=== PATIENT | male | born 1955 | race Two or more races ===

== ENCOUNTER 2019-01-24 16:19 | Emergency (ER) | payer BC, OTHER ==
[~2019-01-24] VITALS: Ht 177.8 cm; Wt 86.2 kg
[2019-01-24 17:36] LABS: BASOPHILS # (AUTO) 0.1 /CMM (0.0-0.2); BASOPHILS % (AUTO) 0.6 % (0.0-2.0); EOSINOPHILS % (AUTO) 1.1 % (0.0-6.0); HEMATOCRIT 43 % (39-51); HEMOGLOBIN 14.5 g/dL (13.5-17.5); LYMPHOCYTES # (AUTO) 4.3 /CMM (0.8-4.8); LYMPHOCYTES % (AUTO) 37.6 % (20.0-44.0); MEAN CORPUSCULAR HGB CONC 33 g/dl (31.0-36.0); MEAN CORPUSCULAR VOLUME 98 fL (80-96); MONOCYTES # (AUTO) 0.8 /CMM (0.1-1.30); MONOCYTES % (AUTO) 7.3 % (2.0-12.0); NEUTROPHILS # (AUTO) 6.1 /CMM (1.8-8.9); NEUTROPHILS % (AUTO) 53.4 % (43.0-81.0); PLATELET COUNT (AUTO) 192 /CMM (150-450); RED BLOOD CELL COUNT(AUTO) 4.41 MIL/uL (4.5-6.0); WHITE BLOOD COUNT (AUTO) 11.4 K/uL (4.3-11.0)
--- NOTE | 2019-01-24 17:37 | NUR ---
PATIENT AWAKE ALERT SR ON MONITOR NOTED ANXIOUS MD @ BEDSIDE WITH ORDERS ABLE OBTAINED BLOOD AND SEND TO LAB
[2019-01-24 17:43] LABS: CALCIUM, SERUM 9.3 mg/dL (8.5-10.1); CARBON DIOXIDE 28 mmol/L (21-32); CHLORIDE 100 mmol/L (98-107); GLUCOSE 111 mg/dL (74-106); POTASSIUM 4.1 mmol/L (3.5-5.1); SODIUM SERUM 133 mmol/L (136-145); UREA NITROGEN, BLOOD 17 mg/dL (7-18)
[2019-01-24 17:49] LABS: ALANINE AMINOTRANSFERASE 26 U/L (12-78); ALKALINE PHOSPHATASE 62 U/L (46-116); ASPARTATE AMINOTRANSFERASE 25 U/L (15-37); BILIRUBIN,DIRECT 0.1 mg/dL (0.0-0.2); BILIRUBIN,TOTAL 0.4 mg/dL (0.2-1.0)
[2019-01-24 18:07] LABS: MAGNESIUM 2.2 mg/dL (1.8-2.4); PHOSPHORUS 2.5 mg/dL (2.5-4.9)
[2019-01-24] MEDS ORDERED: ALPRAZOLAM 0.5 MG TABLET PO ONE (19:30)
--- NOTE | 2019-01-24 19:40 | NUR ---
IV removed. Catheter intact and site benign. Pressure and 4x4 applied to site. No bleeding noted. ambulatory with a steady gait noted. Patient discharged to home in stable condition. Written and verbal after care instructions given. Patient verbalizes understanding of instruction. Pt aaox4 no acute distress noted, resp even and unlabored.
[2019-01-24 19:41] VITALS: BP 146/64
== END 2019-01-24 19:42 | disposition home or self-care (01) ==
LOC: ER 16:22
DX: S80.12XA Contusion of left lower leg, initial encounter (principal); R00.2 Palpitations; F41.9 Anxiety disorder, unspecified; F43.9 Reaction to severe stress, unspecified; R55 Syncope and collapse; I70.0 Atherosclerosis of aorta; I10 Essential (primary) hypertension; I49.9 Cardiac arrhythmia, unspecified; Z98.890 Other specified postprocedural states; X58.XXXA Exposure to other specified factors, initial encounter; Y93.89 Activity, other specified; Y92.89 Other specified places as the place of occurrence of the external cause; Y99.8 Other external cause status
CPT/HCPCS: 36415; 71045-TC; 73590-TC; 80048-TC; 80076-TC; 82550-TC; 83735-TC; 84100-TC; 84484-TC; 85025-TC; 85378-TC; 85730-TC; 93971-TC

== ENCOUNTER 2019-06-08 03:57 | Emergency (ER) | payer BC, MEDICARE ==
[~2019-06-08] VITALS: Ht 175.3 cm; Wt 83.9 kg
--- NOTE | 2019-06-08 04:17 | NUR ---
PT CAME TO ER BED 1 FROM HOME BIB RA C/O HIGH BLOOD PRESSURE OF 216/108. PT STATES THAT HE HAS A HX OF HTN. AAOX4. NO SOB. BREATHING EVENLY AND UNLABORED. CONNECTED TO MONITOR.
--- NOTE | 2019-06-08 05:30 | NUR ---
BLOOD DRAWN AND SENT TO LAB.
[2019-06-08 05:46] LABS: BASOPHILS % (AUTO) 0.4 % (0.0-2.0); EOSINOPHILS % (AUTO) 0.5 % (0.0-6.0); HEMATOCRIT 46 % (39-51); HEMOGLOBIN 15.4 g/dL (13.5-17.5); LYMPHOCYTES # (AUTO) 1.8 /CMM (0.8-4.8); LYMPHOCYTES % (AUTO) 25.6 % (20.0-44.0); MEAN CORPUSCULAR HGB CONC 34 g/dl (31.0-36.0); MEAN CORPUSCULAR VOLUME 96 fL (80-96); MONOCYTES # (AUTO) 0.5 /CMM (0.1-1.30); MONOCYTES % (AUTO) 6.7 % (2.0-12.0); NEUTROPHILS # (AUTO) 4.7 /CMM (1.8-8.9); NEUTROPHILS % (AUTO) 66.8 % (43.0-81.0); PLATELET COUNT (AUTO) 187 /CMM (150-450); RED BLOOD CELL COUNT(AUTO) 4.76 MIL/uL (4.5-6.0)
[2019-06-08 05:53] LABS: CALCIUM, SERUM 9.7 mg/dL (8.5-10.1); CREATININE 0.9 mg/dL (0.6-1.3); POTASSIUM 4.2 mmol/L (3.5-5.1)
[2019-06-08 06:54] VITALS: BP 147/73
--- NOTE | 2019-06-08 06:54 | NUR ---
Patient discharged to home in stable condition. Written and verbal after care instructions given. Patient verbalizes understanding of instruction.
== END 2019-06-08 06:55 | disposition home or self-care (01) ==
LOC: ER 03:58
DX: I10 Essential (primary) hypertension (principal); R42 Dizziness and giddiness; Z98.890 Other specified postprocedural states
CPT/HCPCS: 36415; 71045-TC; 80048-TC; 82962-TC; 84484-TC; 85025-TC

== ENCOUNTER 2019-06-10 12:38 | Emergency (ER) | payer BC, MEDICARE ==
[~2019-06-10] VITALS: Ht 175.3 cm; Wt 83.9 kg
[2019-06-10 13:16] VITALS: BP 134/69
== END 2019-06-10 13:25 | disposition home or self-care (01) ==
LOC: ER 12:41
DX: F41.9 Anxiety disorder, unspecified (principal); I10 Essential (primary) hypertension; Z98.890 Other specified postprocedural states

== ENCOUNTER 2021-06-12 05:40 | Inpatient (IN) | payer BC, MEDICARE ==
[~2021-06-12] VITALS: Ht 175.3 cm; Wt 93.0 kg
--- NOTE | 2021-06-12 05:56 | NUR ---
BIBSELF C/O RAPID HEART RATE OF 117 SINCE HE WOKE UP AT 5AM. "WOKE UP SWEATING" -CP. PATIENT ALERT AND ORIENTED X4. AMBULATORY WITH NON LABORED BREATHING. PLACED IN BED 09 ON MONITOR AND POX.
--- NOTE | 2021-06-12 06:33 | NUR ---
BLOOD COLLECTED AND SENT TO LAB
--- NOTE | 2021-06-12 06:34 | NUR ---
COVID SWAB DONE AND SENT TO LAB
[2021-06-12 06:45] LABS: BASOPHILS % (AUTO) 0.6 % (0.0-2.0); EOSINOPHILS % (AUTO) 0.9 % (0.0-6.0); HEMATOCRIT 42 % (39-51); HEMOGLOBIN 14.4 g/dL (13.5-17.5); LYMPHOCYTES # (AUTO) 2.6 K/uL (0.8-4.8); LYMPHOCYTES % (AUTO) 33.5 % (20.0-44.0); MEAN CORPUSCULAR HGB CONC 34 g/dl (31.0-36.0); MEAN CORPUSCULAR VOLUME 96 fL (80-96); MONOCYTES # (AUTO) 0.6 K/uL (0.1-1.30); MONOCYTES % (AUTO) 7.6 % (2.0-12.0); NEUTROPHILS # (AUTO) 4.5 K/uL (1.8-8.9); NEUTROPHILS % (AUTO) 57.4 % (43.0-81.0); PLATELET COUNT (AUTO) 185 K/uL (150-450); RED BLOOD CELL COUNT(AUTO) 4.41 MIL/uL (4.5-6.0); WHITE BLOOD COUNT (AUTO) 7.8 K/uL (4.3-11.0)
[2021-06-12 06:54] LABS: CALCIUM, SERUM 8.3 mg/dL (8.5-10.1); CREATININE 1.1 mg/dL (0.6-1.3); POTASSIUM 4.2 mmol/L (3.5-5.1)
[2021-06-12] MEDS ORDERED: OMEP20CA15 PO (07:42)
[2021-06-12] MEDS ORDERED: LOSA50TA39 PO (07:42)
[2021-06-12] MEDS ORDERED: ENOXAPARIN SODIUM 80 MG/0.8 ML DISP.SYRIN SQ ONE (08:00)
[2021-06-12] MEDS ORDERED: ASPIRIN 81 MG TAB.CHEW PO ONE (08:00)
--- NOTE | 2021-06-12 08:00 | NUR ---
THE PATIENT IS RECEIVED IN ER BED #9. THE PATIENT IS ALERT AND ORIENTED X4. DENIES PAIN. IN ROOM AIR AND DENIES SOB. RESPIRATION REGULAR AND UNLABORED. ATTACHED TO THE MONITOR. WARM BLANKET PROVIDED FOR COMFORT. WILL CONTINUE TO MONITOR THE PATIENT.
[2021-06-12] MEDS ORDERED: ENOXAPARIN SODIUM 100 MG/ML DISP.SYRIN SQ ONE (08:29)
--- NOTE | 2021-06-12 08:35 | NUR ---
DR. MALDONADO TO DR. GAUTHIER
--- NOTE | 2021-06-12 09:16 | NUR ---
CALLED NURSING SUP REGARDING PT BED
[2021-06-12] MEDS ORDERED: ACETAMINOPHEN 325 MG TABLET PO PRN (10:30)
[2021-06-12] MEDS ORDERED: HYDROCODONE/APAP 5/325MG TABLET PO PRN (10:30)
[2021-06-12] MEDS ORDERED: MAG HYDROX/AL HYDROX/SIMETH 30 ML UDC PO PRN (10:30)
[2021-06-12] MEDS ORDERED: ONDANSETRON HCL/PF 4 MG/2 ML VIAL IVP PRN (10:30)
[2021-06-12] MEDS ORDERED: MAGNESIUM HYDROXIDE 30 ML UDC PO PRN (10:30)
[2021-06-12] MEDS ORDERED: Z GUARD REMEDY 4 OZ OINT TP PRN (10:30)
[2021-06-12] MEDS ORDERED: ZOLPIDEM TARTRATE 5 MG TABLET PO PRN (10:30)
--- NOTE | 2021-06-12 11:00 | NUR ---
NO INPATIENT BED AVAILABLE,WAITING ON D/C OR DOWNGRADE PER HOUSE AINSLEY ALEJANDRE
--- NOTE | 2021-06-12 12:01 | NUR ---
THE PATIENT IS PROVIDED LUNCH. TOLERATES PROVIDED FOOD WELL.
[2021-06-12] MEDS ORDERED: LOSARTAN POTASSIUM 50 MG TABLET PO SCH (17:30)
[2021-06-12] MEDS ORDERED: LOSARTAN POTASSIUM 50 MG TABLET ONE (17:31)
--- NOTE | 2021-06-12 17:31 | NUR ---
RECEIVED AN ORDER FROM DR MALDONADO: LOSARTAN POTASSIUM 50 MG BID PO. THE ORDER IS READ BACK, VERIFIED. NOTED AND CARRIED OUT.
--- NOTE | 2021-06-12 18:28 | NUR ---
ROOM 306-2
--- NOTE | 2021-06-12 19:22 | NUR ---
REPORT GIVEN TO NURSE DEMETRIUS FOR TRACEE
--- NOTE | 2021-06-12 20:47 | NUR ---
REPORT GIVEN TO EFREN ANG
--- NOTE | 2021-06-12 21:27 | NUR ---
PT TRANSFERRED UNDER ACLS
[2021-06-12 21:30] VITALS: BP 148/77
--- NOTE | 2021-06-12 21:30 | NUR ---
SENIOR IT ASSISTANT NOTES PT ARRIVED TO UNIT VIA GURNEY ABLE TO WALK TO THE ROOM AND BED NOTED WITH STEADY GAIT. PT IS A 65 YEAR OLD MALE A/OX4 NO SOB NOTED NO PAIN AT THIS TIME. DX CP ABNORMAL EKG. NO REPORTED CHEST PAIN AT THIS TIME. IV ACCESS ON THE RIGHT AC #18G SL. PT PLACED ON TELE MONITOR SR 70S. PT SKIN IS WARM DRY TO TOUCH NO DISCOLORATION NOTED. NOTED PT WITH OLD SCAR GOING DOWN HIS LOWER BACK. PICTURE TAKEN AND PLACE IN CHART. ABDOMEN NONTENDER NON DISTENDED.PT ORIENTED TO ROOM AND UNIT CALL LIGHT WITHIN REACH TABLE WITHIN REACH. WILL CONTINUE TO MONITOR. Addendum: 06/12/21 at 2254 by ASHIA CONTRERAS RN PER PT HE USES CPAP EVERY NIGHT DUE TO HIS OBSTRUCTIVE SLEEP APNEA REPORTED TO CHIEF MECHANICAL OFFICER RECEIVED ORDER TO PLACE PT ON CPAP NOTED AND CARRIED OUT INFORMED RT.
[2021-06-12 22:00] VITALS: BP 148/77
[2021-06-13] VITALS: BP 151/75
[2021-06-13 00:10] VITALS: BP 151/75
--- NOTE | 2021-06-13 01:15 | NUR ---
RT NOTE PT REQUESTED TO BE TAKEN OFF NOC CPAP. PT STATES HE FELT CLAUSTROPHOBIC. PT ON ROOM AIR RESTING COMFORTABLY. RN AWARE. Addendum: 06/13/21 at 0601 by SHRUTHI DAVIES RT Amended: Links added.
[2021-06-13 04:00] VITALS: BP 152/76
[2021-06-13] MEDS: LOSARTAN POTASSIUM 50 MG TABLET PO SCH ×3 (05:41→17:40)
--- NOTE | 2021-06-13 06:40 | NUR ---
TONG CARRIER NOTES A/OX4 NO SOB NOTED NO PAIN AT THIS TIME. NO REPORTED CHEST PAIN THOUGHT THE SHIFT PT. IV ACCESS ON THE RIGHT AC #18G SL. PT PLACED ON TELE MONITOR SR WITH INVERTED T WAVE 90S. PT SKIN IS WARM DRY TO TOUCH NO DISCOLORATION NOTED. NOTED. ALL DUE MEDS GIVEN AND TOLERATED WELL. ALL NEEDS MET AND ANTICIPATED. CALL LIGHT WITHIN REACH TABLE WITHIN REACH. WILL ENDORSE CARE TO DAY SHIFT NURSE.
[2021-06-13 07:24] LABS: BASOPHILS % (AUTO) 0.3 % (0.0-2.0); EOSINOPHILS % (AUTO) 0.8 % (0.0-6.0); HEMATOCRIT 45 % (39-51); HEMOGLOBIN 15.3 g/dL (13.5-17.5); LYMPHOCYTES # (AUTO) 3.7 K/uL (0.8-4.8); LYMPHOCYTES % (AUTO) 36.1 % (20.0-44.0); MEAN CORPUSCULAR HGB CONC 34 g/dl (31.0-36.0); MEAN CORPUSCULAR VOLUME 96 fL (80-96); MONOCYTES # (AUTO) 0.8 K/uL (0.1-1.30); MONOCYTES % (AUTO) 8.3 % (2.0-12.0); NEUTROPHILS # (AUTO) 5.6 K/uL (1.8-8.9); NEUTROPHILS % (AUTO) 54.5 % (43.0-81.0); PLATELET COUNT (AUTO) 207 K/uL (150-450); RED BLOOD CELL COUNT(AUTO) 4.61 MIL/uL (4.5-6.0); WHITE BLOOD COUNT (AUTO) 10.2 K/uL (4.3-11.0)
[2021-06-13] MEDS ORDERED: PANTOPRAZOLE 40 MG TABLET.DR PO SCH (07:30)
--- NOTE | 2021-06-13 07:39 | NUR ---
EDUCATIONAL SPEECH LANGUAGE CLINICIAN NOTES RECEIVED PATIENT IN BED AWAKE. A/OX4 .NO SOB NOTED NO PAIN AT THIS TIME. NO REPORTED CHEST PAIN .BREATHS EVEN AND UNLABORED. NO SOB NOTED. NO RESPIRATORY DISTRESS NOTED.IV ACCESS ON THE RIGHT AC #18G SL. PT PLACED ON TELE MONITOR SR =73. OVERALL SKIN INTACT. CALL LIGHT AND TABLE WITHIN REACH. BED IN THE LOWEST POSITION AND LOCKED. WILL CONTINUE TO MONITOR.
[2021-06-13 08:00] VITALS: BP 169/78
[2021-06-13 08:30] LABS: MAGNESIUM 2.1 mg/dL (1.8-2.4); PHOSPHORUS 3.2 mg/dL (2.5-4.9); POTASSIUM 4.1 mmol/L (3.5-5.1)
[2021-06-13] MEDS: MORPHINE SULFATE INJ 2 MG/ML DISP.SYRIN IV PRN ×2 (08:37→14:07)
[2021-06-13 08:54] LABS: THYROID STIMULATING HORMONE 1.307 uIU/mL (0.358-3.74)
[2021-06-13] MEDS ORDERED: ASPIRIN EC 81 MG TABLET.DR PO SCH (09:00)
[2021-06-13 12:00] VITALS: BP 158/76
[2021-06-13] MEDS ORDERED: LOSARTAN POTASSIUM 50 MG TABLET PO SCH (13:00)
[2021-06-13] MEDS ORDERED: AMLODIPINE BESYLATE 5 MG TABLET PO SCH (13:30)
[2021-06-13] MEDS ORDERED: AMLO-212 PO (15:37)
[2021-06-13 17:40] VITALS: BP 150/76
--- NOTE | 2021-06-13 17:45 | NUR ---
DISCHARGE NOTES DISCHARGE PATIENT IN STABLE CONDITION.ALL BELONGINGS SIGNED FOR. INSTRUCTIONS GIVEN TO THE PATIENT. PATIENT MEDICALLY STABLE .REMOVE ID BAND AND IV. NO BLEEDING NOTED ON THE IV SITE.WALKED WITH THE PATIENT TO THE LOBBY. PATIENT PICKED THE MEDICATION FROM PHARMACY. MD AND CHARGE NURSE AWARE OF THE DISCHARGE.
[2021-06-13] MEDS ORDERED: METOPROLOL TARTRATE 25 MG TABLET PO SCH (21:00)
== END 2021-06-13 17:45 | disposition home or self-care (01) | DRG 309 ==
LOC: ER 05:42 → TRANSITION 08:42 → TELE 18:42
PROVIDERS: ADMIT Student in an Organized Health Care Education/Training Program; ATTEND Student in an Organized Health Care Education/Training Program
DX: R00.2 Palpitations (principal); E87.1 Hypo-osmolality and hyponatremia; J98.11 Atelectasis; Z20.822 Contact with and (suspected) exposure to COVID-19; Z98.1 Arthrodesis status; G89.29 Other chronic pain; I10 Essential (primary) hypertension; G47.33 Obstructive sleep apnea (adult) (pediatric); R94.31 Abnormal electrocardiogram [ECG] [EKG]
CPT/HCPCS: 36415; 71045-TC; 80048-TC; 80061-TC; 83735-TC; 84100-TC; 84443-TC; 84484-TC; 85025-TC; 87081-TC; 93307-TC; 94660; 94799-TC; C9803; G0378; J1650; J2270

== ENCOUNTER 2021-06-29 10:52 | Outpatient (CLI) | payer MEDICARE, BC ==
[~2021-06-29 10:52] MED LIST: AMLO-212 PO; LOSA50TA39 PO
== END 2021-06-29 23:59 | disposition home or self-care (01) ==
LOC: CT 10:52
PROVIDERS: ATTEND Physician Assistant Surgical
DX: M48.03 Spinal stenosis, cervicothoracic region (principal); M50.31 Other cervical disc degeneration, high cervical region
CPT/HCPCS: 72125-TC

== ENCOUNTER 2021-10-21 09:05 | Outpatient (CLI) | payer MEDICARE, BC | END 2021-10-21 23:59 | disposition home or self-care (01) | LOC: US 09:05 | PROVIDERS: ATTEND Family Medicine | DX: E04.1 Nontoxic single thyroid nodule (principal) | CPT/HCPCS: 76536-TC ==

== ENCOUNTER → 2021-12-03 | Outpatient (CLI) | payer BC, MEDICARE | END | disposition home or self-care (01) | LOC: MRI 07:00 | PROVIDERS: ATTEND Family Medicine | DX: M51.37 Other intervertebral disc degeneration, lumbosacral region (principal); M48.07 Spinal stenosis, lumbosacral region; M51.27 Other intervertebral disc displacement, lumbosacral region; M48.8X7 Other specified spondylopathies, lumbosacral region; M25.78 Osteophyte, vertebrae; Z98.890 Other specified postprocedural states | CPT/HCPCS: 72148-TC ==

== ENCOUNTER 2022-01-07 11:42 | Outpatient (CLI) | payer MEDICARE, OTHER | END 2022-01-07 23:59 | disposition home or self-care (01) | LOC: LAB 11:42 | PROVIDERS: ATTEND Surgery | DX: Z01.812 Encounter for preprocedural laboratory examination (principal); Z20.822 Contact with and (suspected) exposure to COVID-19 | CPT/HCPCS: U0003; C9803 ==

== ENCOUNTER 2022-01-11 12:13 | Day surgery (SDC) | payer MEDICARE, OTHER ==
[2022-01-11] MEDS ORDERED: Sodium Chloride 4 MEQ/ML VIAL IV ONE (15:35)
[2022-01-11] MEDS ORDERED: MIDAZOLAM HCL 2 MG/2ML VIAL ONE (16:30)
[2022-01-11] MEDS ORDERED: FENTANYL PF 100MCG/2ML AMPUL ONE (16:30)
[2022-01-11] MEDS ORDERED: FAMOTIDINE/PF INJ 20 MG/2 ML VIAL IV ONE (16:31)
[2022-01-11] MEDS ORDERED: SUCCINYLCHOLINE CHLORIDE 20 MG/ML VIAL ONE (16:31)
[2022-01-11] MEDS ORDERED: ANESTHESIA TRAY IN PYXIS 1 EA TRAY MC ONE (16:34)
[2022-01-11] MEDS ORDERED: BUPIVACAINE MPF W/EPI 0.25% 30 ML VIAL ONE ×2 (16:34→16:37)
[2022-01-11] MEDS ORDERED: GELATIN SPONGE,ABSORBABLE 1 EA SPONGE TP ONE (17:26)
[2022-01-11] MEDS ORDERED: THROMBIN (BOVINE) 5,000 UNITS VIAL TP ONE ×2 (17:26→18:12)
[2022-01-11] MEDS ORDERED: METRONIDAZOLE 500MG/ NS 100ML 100 ML IV ONE (17:34)
[2022-01-11] MEDS ORDERED: ONDANSETRON HCL/PF 4 MG/2 ML VIAL IVP PRN (18:30)
[2022-01-11] MEDS ORDERED: LABETALOL HCL IV 100MG VIAL ONE (18:46)
[2022-01-11 19:40] VITALS: BP 142/65
--- NOTE | 2022-01-11 19:45 | NUR ---
DAY SURGERY RN NOTE PATIENT ARRIVED TO UNIT FROM OR VIA BED AND CELL OPERATION SUPERVISOR. REPORT GIVEN AT BEDSIDE. PATIENT IN STABLE CONDITION. ON 2L O2 VIA NC POST SURGERY. IV ACCESS TO LEFT AC #20G. VS: BP 142/65 HR 85 RR 18 T 98.0 O2 SAT 100% ON 2L O2. PATIENT REQUESTING TO USE THE RESTROOM. PATIENT AMBULATORY WITH STEADY GAIT. STAND-BY ASSIST PROVIDED POST-OP.
--- NOTE | 2022-01-11 20:10 | NUR ---
RN NOTE SPOKE TO CECE, PATIENTS FAMILY MEMBER, WHO WILL BE PICKING HIM UP TONIGHT. GAVE UPDATE AND APPROX TIME OF DISCHARGE.
--- NOTE | 2022-01-11 20:53 | NUR ---
RN NOTE PATIENT ATTEMPTING TO VOID. HAVING DIFFICULTY AT THIS TIME. PROVIDED FLUIDS. PATIENT CURRENTLY IN RESTROOM.
--- NOTE | 2022-01-11 21:30 | NUR ---
DAY SURGERY MEDICAL OFFICE REPRESENTATIVE NOTE PATIENT URINATED APPROX. 800CC YELLOW URINE. AMBULATING WITHOUT DIFFICULTY. C/O MILD PAIN TO INCISION AREA. FAMILY HERE TO PICK PATIENT UP. ALL DISCHARGE INSTRUCTIONS REVIEWED WITH PATIENT. ALL BELONGINGS SENT HOME WITH PATIENT. IV TO LEFT AC DISCONTINUED WITH PRESSURE DRESSING APPLIED. PATIENT TOLERATED WELL. ID BAND REMOVED. O2 SAT 98% ON ROOM AIR. PATIENT ESCORTED DOWN TO LOBBY VIA WHEELCHAIR AT APPROX. 2130.
== END 2022-01-11 19:00 | disposition home or self-care (01) ==
LOC: DS 12:13 → MED 13:35 → UNDOADMIN 13:35 → DS 19:00 → UNDODISIN 21:30
PROVIDERS: ATTEND Surgery
DX: K62.5 Hemorrhage of anus and rectum (principal); K64.8 Other hemorrhoids; K64.4 Residual hemorrhoidal skin tags; K62.89 Other specified diseases of anus and rectum; I21.4 Non-ST elevation (NSTEMI) myocardial infarction; I10 Essential (primary) hypertension; M54.16 Radiculopathy, lumbar region; Z98.890 Other specified postprocedural states; Z79.899 Other long term (current) drug therapy
CPT/HCPCS: 64430; 46221; J0690; J2704; J3010; J0360; J3490 ×4; J2765; J0330 ×2; J2405; J7030; J2250; A6403; A6402; G0378

== ENCOUNTER 2022-07-07 09:41 | Emergency (ER) | payer MEDICARE, OTHER ==
[~2022-07-07] VITALS: Ht 175.3 cm; Wt 75.3 kg
--- NOTE | 2022-07-07 09:50 | NUR ---
/PA AT BEDSIDE FOR EVAL
--- NOTE | 2022-07-07 09:58 | NUR ---
ACCUCHECK BS 107MG/DL
--- NOTE | 2022-07-07 10:15 | NUR ---
dr. ventura at bedside
--- NOTE | 2022-07-07 10:22 | NUR ---
TECH AT BEDSIDE FOR EKG
--- NOTE | 2022-07-07 10:31 | NUR ---
PT TAKEN TO CT VIA FOREST
[2022-07-07 10:42] LABS: BASOPHILS # (AUTO) 0.1 K/uL (0.0-0.2); BASOPHILS % (AUTO) 0.5 % (0.0-2.0); EOSINOPHILS % (AUTO) 1.8 % (0.0-6.0); HEMATOCRIT 48 % (39-51); HEMOGLOBIN 15.4 g/dL (13.5-17.5); LYMPHOCYTES # (AUTO) 2.9 K/uL (0.8-4.8); LYMPHOCYTES % (AUTO) 29.4 % (20.0-44.0); MEAN CORPUSCULAR HGB CONC 33 g/dl (31.0-36.0); MEAN CORPUSCULAR VOLUME 97 fL (80-96); MONOCYTES # (AUTO) 1.2 K/uL (0.1-1.30); MONOCYTES % (AUTO) 12.6 % (2.0-12.0); NEUTROPHILS # (AUTO) 5.5 K/uL (1.8-8.9); NEUTROPHILS % (AUTO) 55.7 % (43.0-81.0); PLATELET COUNT (AUTO) 221 K/uL (150-450); WHITE BLOOD COUNT (AUTO) 9.9 K/uL (4.3-11.0)
--- NOTE | 2022-07-07 10:47 | NUR ---
PT RETURNED FROM RADIOLOGY
[2022-07-07 11:12] LABS: ALANINE AMINOTRANSFERASE 43 U/L (12-78); ALBUMIN 4.3 g/dL (3.4-5.0); ALKALINE PHOSPHATASE 72 U/L (46-116); ASPARTATE AMINOTRANSFERASE 39 U/L (15-37); BILIRUBIN,DIRECT 0.2 mg/dL (0.0-0.2); BILIRUBIN,TOTAL 0.5 mg/dL (0.2-1.0); CALCIUM, SERUM 9.2 mg/dL (8.5-10.1); CARBON DIOXIDE 28 mmol/L (21-32); CHLORIDE 96 mmol/L (98-107); GLUCOSE 118 mg/dL (74-106); POTASSIUM 3.6 mmol/L (3.5-5.1); SODIUM SERUM 133 mmol/L (136-145); TOTAL PROTEIN, SERUM 7.7 g/dL (6.4-8.2); UREA NITROGEN, BLOOD 19 mg/dL (7-18)
[2022-07-07 12:24] VITALS: BP 135/82
== END 2022-07-07 12:33 | disposition home or self-care (01) ==
LOC: ER 09:45
DX: I10 Essential (primary) hypertension (principal); H53.8 Other visual disturbances; R43.8 Other disturbances of smell and taste; K21.9 Gastro-esophageal reflux disease without esophagitis; Z98.890 Other specified postprocedural states; Z79.899 Other long term (current) drug therapy
CPT/HCPCS: 36415; 70450-TC; 71045-TC; 80048-TC; 80076-TC; 82962-TC; 84484-TC; 85025-TC; 85730-TC

== ENCOUNTER 2023-01-27 05:15 | Emergency (ER) | payer MEDICARE, OTHER ==
[~2023-01-27] VITALS: Ht 175.3 cm; Wt 74.4 kg
[2023-01-27 07:02] LABS: BASOPHILS % (AUTO) 0.3 % (0.0-2.0); EOSINOPHILS % (AUTO) 0.6 % (0.0-6.0); HEMATOCRIT 41 % (39-51); HEMOGLOBIN 14.2 g/dL (13.5-17.5); LYMPHOCYTES # (AUTO) 2.1 K/uL (0.8-4.8); LYMPHOCYTES % (AUTO) 30.9 % (20.0-44.0); MEAN CORPUSCULAR HEMOGLOBIN 32 PG (26.0-33.0); MEAN CORPUSCULAR HGB CONC 34 g/dl (31.0-36.0); MEAN CORPUSCULAR VOLUME 94 fL (80-96); MONOCYTES # (AUTO) 0.5 K/uL (0.1-1.30); MONOCYTES % (AUTO) 7.9 % (2.0-12.0); NEUTROPHILS % (AUTO) 60.3 % (43.0-81.0); PLATELET COUNT (AUTO) 176 K/uL (150-450); RED CELL DISTRIBUTION WIDTH 13.5 % (11.5-15.0); WHITE BLOOD COUNT (AUTO) 6.7 K/uL (4.3-11.0)
[2023-01-27 07:05] LABS: CALCIUM, SERUM 9.2 mg/dL (8.5-10.1); CARBON DIOXIDE 28 mmol/L (21-32); CHLORIDE 99 mmol/L (98-107); CREATININE 0.9 mg/dL (0.6-1.3); GLUCOSE 119 mg/dL (74-106); POTASSIUM 4.4 mmol/L (3.5-5.1); SODIUM SERUM 133 mmol/L (136-145); UREA NITROGEN, BLOOD 18 mg/dL (7-18)
[2023-01-27 07:19] LABS: ALANINE AMINOTRANSFERASE 34 U/L (12-78); ALKALINE PHOSPHATASE 68 U/L (46-116); ASPARTATE AMINOTRANSFERASE 25 U/L (15-37); BILIRUBIN,DIRECT 0.2 mg/dL (0.0-0.2); BILIRUBIN,TOTAL 0.7 mg/dL (0.2-1.0); NT-PRO BNP 46 pg/mL (0-125); TOTAL PROTEIN, SERUM 7.1 g/dL (6.4-8.2)
[2023-01-27 08:11] LABS: MAGNESIUM 2.2 mg/dL (1.8-2.4)
[2023-01-27 08:22] LABS: THYROID STIMULATING HORMONE 1.017 uIU/mL (0.358-3.74)
[2023-01-27 08:48] VITALS: BP 147/67; TEMP 98; O2SAT 97
== END 2023-01-27 08:49 | disposition home or self-care (01) ==
LOC: ER 06:24
DX: R00.2 Palpitations (principal); I10 Essential (primary) hypertension; K21.9 Gastro-esophageal reflux disease without esophagitis; Z98.890 Other specified postprocedural states; Z79.899 Other long term (current) drug therapy
CPT/HCPCS: 36415; 71045-TC; 80048-TC; 80076-TC; 82962-TC; 83735-TC; 83880; 84100-TC; 84443-TC; 84484-TC; 85025-TC